=== PATIENT | male | born 1980 | race Two or more races ===

== ENCOUNTER 2024-10-20 15:00 | Outpatient (CLI) | payer OTHER ==
[2024-10-20 15:56] LABS: BASO % 0.5 % (0.1-1.2); HEMATOCRIT 42.7 % (40.1-51.0); HEMOGLOBIN 14.1 g/dL (13.7-17.5); LYMPH # 2.27 (1.18-3.74); MEAN CORPUSCULAR HEMOGLOBIN 27.9 pg (25.6-32.2); MONO # 0.91 (0.24-0.82); MONO % 9.2 % (4.7-12.5); PLATELET COUNT 275 K/uL (163-369); RED BLOOD COUNT 5.06 M/uL (4.63-6.08); RED CELL DISTRIBUTION WIDTH 13.8 % (11.6-14.4)
[2024-10-20 15:59] LABS: URINE BILIRRUBIN SMALL (NEGATIVE); URINE BLOOD NEGATIVE; URINE GLUCOSE NEGATIVE (NEGATIVE); URINE KETONE TRACE (NEGATIVE); URINE LEUKOCYTE NEGATIVE; URINE NITRATE NEGATIVE; URINE PROTEIN NEGATIVE (NEGATIVE); URINE UROBILINOGEN 0.2 E.U./dl
[2024-10-20 16:03] LABS: URINE BACTERIA 4.8 uL (0.0-1933); URINE RBC 5.3 uL (0.0-20.8); URINE WBC 2.3 uL (0.0-23.2)
[2024-10-20 16:09] LABS: URINE EPITHELIAL CELLS 1.2 uL (0.0-38.8)
[2024-10-20 16:12] LABS: URINE APPEARANCE CLEAR; URINE COLOR YELLOW
[2024-10-20 16:17] LABS: CALCIUM 9.1 mg/dL (8.5-10.1); CREATININE SERUM 0.71 mg/dL (0.70-1.30); GFR 120.52; POTASSIUM 3.87 mEq/L (3.5-5.1)
[2024-10-20 16:19] LABS: INR 0.99; PARTIAL THROMBOPLASTIN TIME 25.9 SECONDS (22.0-34.0); PROTHROMBIN TIME 10.8 SECONDS (9.0-11.5)
== END 2024-10-20 15:18 | disposition home or self-care (01) ==
LOC: LAB 15:00 → RAD 15:00 → LAB 15:18
PROVIDERS: ATTEND Surgery
DX: K40.90 Unilateral inguinal hernia, without obstruction or gangrene, not specified as recurrent (principal); Z01.818 Encounter for other preprocedural examination

== ENCOUNTER 2024-11-01 05:15 | Day surgery (SDC) | payer OTHER ==
[2024-10-24 15:21] VITALS: BP 118/75
[~2024-11-01] VITALS: Ht 175.3 cm; Wt 79.4 kg
[2024-11-01] MEDS ORDERED: ENOXAPARIN SODIUM 40 MG/0.4 ML SYRINGE SUBCUTANEO ONE ×2 (07:23→07:36)
[2024-11-01] MEDS ORDERED: CEFTRIAXONE SODIUM 2,000 MG VIAL ONE ×2 (07:23→07:36)
[2024-11-01] MEDS ORDERED: METRONIDAZOLE/SODIUM CHLORIDE 500 MG/100 ML PIGGYBACK IV ONE ×2 (07:24→07:36)
[2024-11-01] MEDS ORDERED: BUPIVACAINE HCL/MPF 0.5% 30ML VIAL ONE (07:30)
[2024-11-01] MEDS ORDERED: SUGAMMADEX SODIUM 200 MG/2 ML VIAL IV ONE (09:28)
[2024-11-01] MEDS ORDERED: PERCOCET 5-3251 EACH PO (11:15)
[2024-11-01] MEDS ORDERED: CELEBREX200MG PO (11:15)
[2024-11-01] MEDS ORDERED: NEURONTIN300 MG PO (11:15)
[2024-11-01] MEDS ORDERED: POLY119PG PO (11:16)
== END 2024-11-01 13:05 | disposition home or self-care (01) ==
LOC: CIR.AMB 05:15
PROVIDERS: ATTEND Surgery
DX: K40.90 Unilateral inguinal hernia, without obstruction or gangrene, not specified as recurrent (principal)
CPT/HCPCS: 49650; C1781